=== PATIENT | male | born 1980 | race African-American/Black ===

== ENCOUNTER 2024-11-27 08:34 | Emergency (ER) | payer OTHER ==
[~2024-11-27] VITALS: Ht 182.9 cm; Wt 105.0 kg
[2024-11-27 08:35] VITALS: O2SAT 95
[2024-11-27 08:47] VITALS: BP 118/72; PULSE 92; RESP 16; TEMP 37.1; O2SAT 95
[2024-11-27 09:07] LABS: BASOPHILS % 0.8 % (0.0-2.0); EOSINOPHILS % 3.8 % (0.0-5.0); HEMATOCRIT. 51.1 % (42.0-52.0); HEMOGLOBIN. 17.5 g/dL (14.0-18.0); LYMPHOCYTES % 34.3 % (20.0-50.0); MEAN CORPUSCULAR HEMOGLOBIN 29.1 pg (28.0-32.0); MEAN CORPUSCULAR HGB CONC 34.2 g/dL (31.0-37.0); MEAN CORPUSCULAR VOLUME 85.1 fL (80.0-94.0); MEAN PLATELET VOLUME 8.6 fl (7.4-10.4); MONOCYTES % 8.5 % (2.0-8.0); NEUTROPHILS % 52.6 % (40.0-76.0); PLATELET 232 x1000/uL (130-400); RED BLOOD CELL COUNT 6.01 mill/uL (4.7-6.1); RED CELL DISTRIBUTION WIDTH 13.7 % (11.6-14.6)
[2024-11-27 09:15] LABS: PROTHROMBIN TIME 11.5 sec (9.6-11.0)
[2024-11-27 09:31] LABS: CHLORIDE 102 mEq/L (98-107); POTASSIUM 3.5 mEq/L (3.5-5.1); SODIUM 138 mEq/L (136-145)
[2024-11-27 09:33] LABS: CALCIUM 9.6 mg/dL (8.7-10.4); CARBON DIOXIDE 25 mEq/L (21-32)
[2024-11-27 09:38] LABS: CREATININE 1.3 mg/dL (0.6-1.3); GLUCOSE 219 mg/dL (70-105); UREA NITROGEN BLOOD 13 mg/dL (9-23)
[2024-11-27 09:39] LABS: TROPONIN I HIGH SENSITIVITY < 4 ng/L (3.0-53)
[2024-11-27 09:53] VITALS: TEMP 98.7
[2024-11-27] MEDS: ACETAMINOPHEN 325MG TABLET PO ONE (09:53)
[2024-11-27] MEDS ORDERED: TOPUD PO (11:01)
== END 2024-11-27 12:00 | disposition home or self-care (01) ==
LOC: ER 08:47
DX: S09.90XA Unspecified injury of head, initial encounter (principal); R55 Syncope and collapse; E11.9 Type 2 diabetes mellitus without complications; X58.XXXA Exposure to other specified factors, initial encounter; Y93.89 Activity, other specified; Y92.89 Other specified places as the place of occurrence of the external cause; Y99.8 Other external cause status
CPT/HCPCS: 99285; 70450; 71045; 80048; 85025; 85379; 85610; 84484; 36415; 93005; A4663; 99284; A4606